=== PATIENT | male | born 1955 | race Caucasian/White ===

== ENCOUNTER → 2017-01-26 | Outpatient (CLI) | payer OTHER ==
[~2017-01-26] MED LIST: ALBU17IN INH; ASPI1TAB PO; ASPI325T PO; ASPI81TA45 PO; ATEN50TA2 PO; ATOR40TA PO; ATRO0.063 IN; CHLO125TA PO; COMBAER6 INH; DOCU100C PO; DOCU10CA PO; FLOM5CAP PO; FOLI1TAB2 PO; FURO20TA2 PO; ISOS10TAB PO; ISOS5TA PO; LISI-538 PO; LOPR1TAB6 PO; METF1000 PO; METO100T PO; METO25TAB PO; METO50TA2 PO; MULTCAP PO; NITR4TASL SL; PLAV75TA38 PO; PROT1TAB2 PO; SENO8.6T2 PO; TELM1TAB2 PO; TYLE325T5 PO; VITMTA PO
[2017-01-26 13:52] LABS: ANION GAP 9 MEQ/L (8-16); BLOOD UREA NITROGEN 15 MG/DL (7-18); CALCIUM LEVEL 9.1 MG/DL (8.8-10.2); CARBON DIOXIDE LEVEL 28 MEQ/L (21-32); CHLORIDE LEVEL 100 MEQ/L (98-107); CREATININE FOR GFR 1.15 MG/DL (0.70-1.30); GLOMERULAR FILTRATION RATE > 60.0 (>49); GLUCOSE, FASTING 138 MG/DL (80-110); POTASSIUM SERUM 4.4 MEQ/L (3.5-5.1); SODIUM LEVEL 137 MEQ/L (136-145)
== END ==
LOC: M SMT 09:46
PROVIDERS: ATTEND Nurse Practitioner Women's Health
DX: Z12.5 Encounter for screening for malignant neoplasm of prostate (principal); E27.9 Disorder of adrenal gland, unspecified

== ENCOUNTER → 2017-01-26 | Outpatient (REF) | payer OTHER | LOC: M SMT 17:06 | PROVIDERS: ATTEND Nurse Practitioner Women's Health | DX: R10.9 Unspecified abdominal pain (principal); E27.9 Disorder of adrenal gland, unspecified ==

== ENCOUNTER → 2017-01-27 | Outpatient (REF) | payer OTHER | LOC: M SFHCPLAZ 09:11 | PROVIDERS: ATTEND Family Medicine | DX: E11.9 Type 2 diabetes mellitus without complications (principal); I10 Essential (primary) hypertension ==

== ENCOUNTER → 2017-02-02 | Outpatient (CLI) | payer OTHER ==
[~2017-02-02] MED LIST changes: +ISOVUE-370 76% 100ML VIAL (Q9967) As Ordered ONE
== END ==
LOC: M RAD 15:42
PROVIDERS: ATTEND Nurse Practitioner Women's Health
DX: E27.9 Disorder of adrenal gland, unspecified (principal); N28.1 Cyst of kidney, acquired; K42.9 Umbilical hernia without obstruction or gangrene

== ENCOUNTER → 2017-08-30 | Outpatient (REF) | payer OTHER ==
[2017-08-30 16:00] LABS: ESTIMATED AVERAGE GLUCOSE 131 MG/DL (60-110); HEMOGLOBIN A1c 6.2 %
== END ==
LOC: M SFHCPLAZ 13:58
DX: E11.9 Type 2 diabetes mellitus without complications (principal)

== ENCOUNTER → 2018-09-23 | Outpatient (CLI) | payer OTHER ==
[~2018-09-23] MED LIST changes: -ATOR40TA PO; +ATOR40TA75 PO; -DOCU100C PO; +DOCU100C16 PO; +FLOM0.4C39 PO; -FLOM5CAP PO; +FOLI1TAB11 PO; -FOLI1TAB2 PO; -ISOVUE-370 76% 100ML VIAL (Q9967) As Ordered ONE; -METF1000 PO; +METF10004 PO; -METO100T PO; +METO100T5 PO; -METO50TA2 PO; +METO50TA7 PO; +PLAV1TAB2 PO; -PLAV75TA38 PO; -SENO8.6T2 PO; +SENO8.6T5 PO; -TELM1TAB2 PO; +TELM1TAB37 PO
--- NOTE | 2018-09-23 13:43 | REP ---
RENAL AND BLADDER ULTRASOUND: Real-time sonographic evaluation of the kidney is performed. Right kidney measures 12.1 x 6.5 x 6.2 cm and left kidney 13.4 x 6.4 x 7.0 cm. There is no hydronephrosis bilaterally. No definite renal stone is seen. There is a cyst in the upper left kidney 5.0 x 4.5 x 5.8 cm. This has increased in size compared to the prior study of 02/22/2015 when maximum diameter was 3.5 cm. It is similar in size compared to the CT scan of 02/02/2017. Prostate measures 3.8 x 3.6 x 3.2 cm for a volume of 22.9 mL. Urinary bladder is mildly distended with no gross abnormality. IMPRESSION: Left renal cyst. Electronically Signed by Bjorn Spencer MD 09/23/2018 01:45 P
== END ==
LOC: M RAD 12:28
PROVIDERS: ATTEND Family Medicine
DX: N28.1 Cyst of kidney, acquired (principal)

== ENCOUNTER → 2018-11-23 | Outpatient (REF) | payer OTHER ==
[~2018-11-23] MED LIST changes: +ASPI-1 PO; -ASPI1TAB PO; -ASPI325T PO; +ASPI81TA26 PO; +METO1TAB63 PO; -METO25TAB PO
[2018-11-23 13:08] LABS: C REACTIVE PROTEIN QUANTITATIV < 0.30 MG/DL (0.00-0.30); RHEUMATOID FACTOR QUANT < 10.0 IU/ML (<15.0)
[2018-11-23 13:28] LABS: APPEARANCE, URINE CLEAR (CLEAR); BACTERIA, URINE AUTO NEGATIVE (NEGATIVE); BILIRUBIN, URINE AUTO NEGATIVE (NEGATIVE); BLOOD, URINE BLOOD NEGATIVE (NEGATIVE); COLOR, URINE YELLOW (YELLOW); GLUCOSE, URINE (UA) AUTO NEGATIVE (NEGATIVE); KETONE, URINE AUTO TRACE mg/dL (NEGATIVE); LEUKOCYTE ESTERASE, URINE AUTO NEGATIVE (NEGATIVE); MUCUS, URINE SMALL (NEGATIVE); NITRITE, URINE AUTO NEGATIVE (NEGATIVE); PROTEIN, URINE AUTO NEGATIVE (NEGATIVE); RBC, URINE AUTO 0 /HPF (0-3); SPECIFIC GRAVITY URINE AUTO 1.024 (1.002-1.035); SQUAMOUS EPITHELIAL CELL UR AU 1 /HPF (0-6); WBC, URINE AUTO 1 /HPF (0-3)
== END ==
LOC: M SFHCPLAZ 08:51
PROVIDERS: ATTEND Family Medicine
DX: R39.89 Other symptoms and signs involving the genitourinary system (principal); Z87.39 Personal history of other diseases of the musculoskeletal system and connective tissue

== ENCOUNTER → 2018-12-28 | Outpatient (CLI) | payer OTHER ==
--- NOTE | 2018-12-28 08:48 | PFTRPT ---
Height: 72.00 Inches Weight: 270.00 Lbs BSA: 2.42 Diagnosis: J44.9 DATE OF STUDY: 12/28/2018 ORDERED BY: Dr. Claudio Pat Spirometry: Pre and post bronchodilator study of excellent technical quality. Forced vital capacity reduced. FEV1 in proportion. Obstructive index is, therefore, normal. Flow Volume Loop: Expiratory limb of the flow volume loop does suggest some degree of flow rate limitation in a nonspecific pattern. No significant bronchodilator response identified. Lung Volumes: Total lung capacity is normal. Diffusing Capacity: Diffusing capacity is reduced and does not correct for alveolar volume. Hemoglobin: No hemoglobin available for correction. Airway Mechanics: Airway resistance and conductance are normal. IMPRESSION: Nonspecific flow rate limitation with diffusing capacity impairment requires clinical correlation. MTDD
== END ==
LOC: M CARPUL 08:03
PROVIDERS: ATTEND Family Medicine
DX: J44.9 Chronic obstructive pulmonary disease, unspecified (principal)

== ENCOUNTER → 2019-03-21 | Outpatient (REF) | payer OTHER ==
[2019-03-21 17:36] LABS: HEMATOCRIT 39.8 % (42.0-52.0); HEMOGLOBIN 12.8 g/dl (13.5-17.5); MEAN CORPUSCULAR HEMOGLOBIN 29.2 pg (27.0-33.0); MEAN CORPUSCULAR HGB CONC 32.2 g/dl (32.0-36.5); MEAN CORPUSCULAR VOLUME 90.7 fl (80.0-96.0); PLATELET COUNT, AUTOMATED 245 10^3/uL (150-450); RED BLOOD COUNT 4.39 10^6/uL (4.30-6.10); WHITE BLOOD COUNT 7.7 10^3/uL (4.0-10.0)
[2019-03-21 17:45] LABS: ALBUMIN 4.1 GM/DL (3.2-5.2); BLOOD UREA NITROGEN 14 MG/DL (7-18); CALCIUM LEVEL 9.9 MG/DL (8.8-10.2); CARBON DIOXIDE LEVEL 27 MEQ/L (21-32); CHLORIDE LEVEL 106 MEQ/L (98-107); CREATININE FOR GFR 1.15 MG/DL (0.70-1.30); GLOMERULAR FILTRATION RATE > 60.0 (>49); GLUCOSE, FASTING 117 MG/DL (70-100); NT-PRO BNP 40 PG/ML (<125); PHOSPHORUS LEVEL 3.2 MG/DL (2.5-4.9); POTASSIUM SERUM 4.7 MEQ/L (3.5-5.1); SODIUM LEVEL 140 MEQ/L (136-145)
== END ==
LOC: M LABDRAWP 15:16
PROVIDERS: ATTEND Internal Medicine Cardiovascular Disease
DX: R06.02 Shortness of breath (principal); I10 Essential (primary) hypertension

== ENCOUNTER → 2019-12-18 | Outpatient (REF) | payer OTHER ==
[2019-12-18 18:10] LABS: BLOOD UREA NITROGEN 13 MG/DL (7-18); CALCIUM LEVEL 10.1 MG/DL (8.8-10.2); CARBON DIOXIDE LEVEL 29 MEQ/L (21-32); CHLORIDE LEVEL 105 MEQ/L (98-107); CREATININE FOR GFR 1.04 MG/DL (0.70-1.30); GLOMERULAR FILTRATION RATE > 60.0 (>49); GLUCOSE, FASTING 203 MG/DL (70-100); POTASSIUM SERUM 5.3 MEQ/L (3.5-5.1); PROSTATIC SPECIFIC AG MONITOR 1.69 NG/ML (< 4.00); SODIUM LEVEL 140 MEQ/L (136-145)
[2019-12-18 18:23] LABS: MALB URINE SIEMENS 80.9 MG/L; MAU/CREAT RATIO 34.8 MCG/MG (0.0-30.0)
== END ==
LOC: M SFHCPLAZ 15:02
PROVIDERS: ATTEND Family Medicine
DX: E11.9 Type 2 diabetes mellitus without complications (principal); Z12.5 Encounter for screening for malignant neoplasm of prostate

== ENCOUNTER → 2020-01-16 | Outpatient (CLI) | payer OTHER ==
--- NOTE | 2020-01-17 04:50 | REP ---
Clinical: Lung screening. History smoking. Comparison: 04/02/2016 Technique: Axial low-dose noncontrast images from the thoracic inlet to the upper abdomen using lung screening technique. Findings: The lung alvarado are well-aerated. No consolidation, significant nodule or mass lesion is appreciated. Incidental 2 mm nodule at the lingula (image 56). No pleural effusion/reaction or pneumothorax. Tracheobronchial tree is patent. Mediastinum demonstrates mild atherosclerotic changes of the coronary arteries without cardiomegaly. Impression: Lung-RADS category II. 2 mm nodule at the lingula. Management recommendations include annual low-dose CT evaluation. Electronically Signed by Doyle Krishnamurthy MD 01/17/2020 04:42 A
== END ==
LOC: M RAD 09:54
PROVIDERS: ATTEND Family Medicine
DX: Z12.2 Encounter for screening for malignant neoplasm of respiratory organs (principal); Z87.891 Personal history of nicotine dependence; R91.1 Solitary pulmonary nodule

== ENCOUNTER → 2020-12-30 | Outpatient (REF) | payer OTHER ==
[~2020-12-30] MED LIST changes: -LISI-538 PO; +LISI20TA33 PO
[2020-12-30 16:00] LABS: HEMOGLOBIN A1c 11.1 %
[2020-12-30 16:07] LABS: BLOOD UREA NITROGEN 15 MG/DL (7-18); CALCIUM LEVEL 8.8 MG/DL (8.8-10.2); CARBON DIOXIDE LEVEL 26 MEQ/L (21-32); CHLORIDE LEVEL 100 MEQ/L (98-107); CHOLESTEROL LEVEL 203 MG/DL (<200); CHOLESTEROL RISK RATIO 5.342 (<5); CREATININE FOR GFR 0.86 MG/DL (0.70-1.30); GLOMERULAR FILTRATION RATE > 60.0 (>49); GLUCOSE, FASTING 297 MG/DL (70-100); HDL CHOLESTEROL 38 MG/DL (>40); NON-HDL-C 165 MG/DL; POTASSIUM SERUM 4.4 MEQ/L (3.5-5.1); SODIUM LEVEL 134 MEQ/L (136-145); TRIGLYCERIDES LEVEL 681 MG/DL (<150)
[2020-12-30 16:20] LABS: CREATININE, URINE 69.4 MG/DL; MALB URINE SIEMENS 84.9 MG/L; MAU/CREAT RATIO 122.3 MCG/MG (0.0-30.0)
== END ==
LOC: M SFHCPLAZ 13:14
PROVIDERS: ATTEND Family Medicine
DX: I25.2 Old myocardial infarction (principal); E11.9 Type 2 diabetes mellitus without complications

== ENCOUNTER → 2021-01-20 | Outpatient (CLI) | payer OTHER ==
--- NOTE | 2021-01-20 10:42 | REP ---
INDICATION: ENCNTR SCREEN FOR MALIGNANT NEOPLASM OF RESPIRATORY ORGANS COMPARISON: 01/16/2020, 04/02/2016 TECHNIQUE: Axial noncontrast images from the thoracic inlet to the upper abdomen using low-dose lung screening technique (LDCT). FINDINGS: Bilateral lung alvarado are well aerated. Stable 2 mm density in the lingula is unchanged. A 3 mm noncalcified nodule is also identified within the right lower lobe (series 201; image 50) which in retrospect is stable through 2016. No acute consolidation, new suspicious nodule or mass lesion. No effusion. No pneumothorax. Tracheobronchial tree is patent. IMPRESSION: Lung-RADS category 2. Management recommendations include annual low-dose CT surveillance. <Electronically signed by Doyle Krishnamurthy > 01/20/21 [id number]
== END ==
LOC: M RAD 10:10
PROVIDERS: ATTEND Family Medicine
DX: R91.1 Solitary pulmonary nodule (principal)

== ENCOUNTER → 2022-06-24 | Outpatient (CLI) | payer OTHER ==
[~2022-06-24] MED LIST changes: +ATOR80TA59 PO; +CIAL5TAB PO; +CLOP75TA99 PO; +ICOS1CAP PO; +ISOS10TA3 PO; +ISOS20TA53 PO; +LEVO1TAB40 PO; +METF-838 PO; +METR-265 PO; -PLAV1TAB2 PO
[2022-06-24 16:23] LABS: ALBUMIN 3.8 GM/DL (3.2-5.2); ALT/SGPT 35 U/L (12-78); BILIRUBIN,TOTAL 0.9 MG/DL (0.2-1.0); BLOOD UREA NITROGEN 18 MG/DL (7-18); CALCIUM LEVEL 9.7 MG/DL (8.8-10.2); CARBON DIOXIDE LEVEL 30 MEQ/L (21-32); CHLORIDE LEVEL 95 MEQ/L (98-107); GLOMERULAR FILTRATION RATE > 60.0 (>49); GLUCOSE, FASTING 418 MG/DL (70-100); POTASSIUM SERUM 4.6 MEQ/L (3.5-5.1); SODIUM LEVEL 133 MEQ/L (136-145); TOTAL PROTEIN 7.6 GM/DL (6.4-8.2)
[2022-06-24 18:36] LABS: CREATININE, URINE 62.6 MG/DL; MAU/CREAT RATIO 127.7 MCG/MG (0.0-30.0)
[2022-06-24 21:44] LABS: HEMOGLOBIN A1c 12.9 %
[2022-06-26 23:07] LABS: PSA TOTAL 2.5 ng/mL (0.0-4.0)
== END ==
LOC: M PLALAB 13:04
PROVIDERS: ATTEND Student in an Organized Health Care Education/Training Program
DX: E11.9 Type 2 diabetes mellitus without complications (principal); Z12.5 Encounter for screening for malignant neoplasm of prostate

== ENCOUNTER → 2023-01-28 | Outpatient (CLI) | payer OTHER ==
[2023-01-28 17:02] LABS: HEMOGLOBIN A1c 10.1 % (4.0-6.0)
== END ==
LOC: M PLALAB 12:52
PROVIDERS: ATTEND Student in an Organized Health Care Education/Training Program
DX: I25.118 Atherosclerotic heart disease of native coronary artery with other forms of angina pectoris (principal); Z79.899 Other long term (current) drug therapy

== ENCOUNTER → 2023-02-05 | Outpatient (CLI) | payer OTHER ==
[2023-02-05 15:58] LABS: BASO # 0.1 10^3/uL (0.0-0.2); BASO % 0.8 % (0.0-1.0); EOS # 0.2 10^3/uL (0.0-0.5); EOS % 2.8 % (0.0-3.0); HEMATOCRIT 41.3 % (42.0-52.0); HEMOGLOBIN 13.8 g/dl (13.5-17.5); LYMPH # 2.8 10^3/uL (1.5-5.0); LYMPH % 47.2 % (24.0-44.0); MEAN CORPUSCULAR HEMOGLOBIN 29.9 pg (27.0-33.0); MEAN CORPUSCULAR HGB CONC 33.4 g/dl (32.0-36.5); MEAN CORPUSCULAR VOLUME 89.4 fl (80.0-96.0); MONO # 0.6 10^3/uL (0.0-0.8); MONO % 10.5 % (2.0-8.0); NEUTROPHILS # 2.3 10^3/uL (1.5-8.5); NEUTROPHILS % 38.2 % (36.0-66.0); PLATELET COUNT, AUTOMATED 215 10^3/uL (150-450); RED BLOOD COUNT 4.62 10^6/uL (4.30-6.10)
[2023-02-05 16:20] LABS: ALBUMIN 3.8 G/DL (3.2-5.2); ALKALINE PHOSPHATASE 77 U/L (46-116); ALT/SGPT 44 U/L (7.0-40); AST/SGOT 37 U/L (<34); BILIRUBIN,TOTAL 0.6 MG/DL (0.3-1.2); BLOOD UREA NITROGEN 17 MG/DL (9-23); CALCIUM LEVEL 8.9 MG/DL (8.3-10.6); CARBON DIOXIDE LEVEL 29 MMOL/L (20-31); CHLORIDE LEVEL 103 MMOL/L (98-107); CHOLESTEROL LEVEL 161 MG/DL (<200); CHOLESTEROL RISK RATIO 4.38 (<5); CREATININE FOR GFR 1.15 MG/DL (0.70-1.30); GLOMERULAR FILTRATION RATE > 60.0 (>49); GLUCOSE, FASTING 173 MG/DL (74-106); HDL CHOLESTEROL 36.7 MG/DL (>40); LDL CHOLESTEROL 56.5 MG/DL (<100); NON-HDL-C 124.3 MG/DL; POTASSIUM SERUM 4.7 MMOL/L (3.5-5.1); SODIUM LEVEL 140 MMOL/L (136-145); TOTAL PROTEIN 6.4 G/DL (5.7-8.2); TRIGLYCERIDES LEVEL 339 MG/DL (<150)
[2023-02-05 16:38] LABS: CREATININE, URINE 105.5 MG/DL; MAU/CREAT RATIO 68.2 MCG/MG (0.0-30.0)
== END ==
LOC: M PLALAB 12:32
PROVIDERS: ATTEND Student in an Organized Health Care Education/Training Program
DX: Z86.73 Personal history of transient ischemic attack (TIA), and cerebral infarction without residual deficits (principal); E11.65 Type 2 diabetes mellitus with hyperglycemia

== ENCOUNTER → 2023-06-17 | Outpatient (CLI) | payer OTHER ==
[2023-06-17 16:23] LABS: HEMOGLOBIN A1c 6.5 % (4.0-6.0)
== END ==
LOC: M PLALAB 13:59
PROVIDERS: ATTEND Student in an Organized Health Care Education/Training Program
DX: E11.65 Type 2 diabetes mellitus with hyperglycemia (principal)

== ENCOUNTER → 2023-06-17 | Outpatient (REF) | payer OTHER | LOC: M SFHCPLAZ 18:18 | PROVIDERS: ATTEND Internal Medicine Hematology | DX: E11.65 Type 2 diabetes mellitus with hyperglycemia (principal) ==

== ENCOUNTER → 2023-10-13 | Outpatient (CLI) | payer OTHER ==
[2023-10-13 14:51] LABS: HEMOGLOBIN A1c 13.1 % (4.0-6.0)
[2023-10-13 15:00] LABS: THYROID STIMULATING HORMONE 4.218 uIU/ML (0.55-4.78); TOTAL 25(OH) VITAMIN D 8.3 NG/ML (20.0-100.0)
[2023-10-13 15:03] LABS: VITAMIN B12 LEVEL 435 PG/ML (211-911)
[2023-10-13 15:19] LABS: ALBUMIN 3.7 G/DL (3.2-5.2); ALKALINE PHOSPHATASE 105 U/L (46-116); ALT/SGPT 55 U/L (7.0-40); AST/SGOT 24 U/L (<34); BILIRUBIN,TOTAL 0.5 MG/DL (0.3-1.2); BLOOD UREA NITROGEN 18 MG/DL (9-23); CALCIUM LEVEL 9.8 MG/DL (8.3-10.6); CARBON DIOXIDE LEVEL 26 MMOL/L (20-31); CHLORIDE LEVEL 95 MMOL/L (98-107); CHOLESTEROL LEVEL 367 MG/DL (<200); CHOLESTEROL RISK RATIO 8.92 (<5); CREATININE FOR GFR 0.83 MG/DL (0.70-1.30); GLOMERULAR FILTRATION RATE > 60.0 (>49); GLUCOSE, FASTING 397 MG/DL (74-106); HDL CHOLESTEROL 41.1 MG/DL (>40); NON-HDL-C 325.9 MG/DL; POTASSIUM SERUM 4.1 MMOL/L (3.5-5.1); SODIUM LEVEL 132 MMOL/L (136-145); TOTAL PROTEIN 6.9 G/DL (5.7-8.2); TRIGLYCERIDES LEVEL 1814 MG/DL (<150)
== END ==
LOC: M PLALAB 10:36
PROVIDERS: ATTEND Student in an Organized Health Care Education/Training Program
DX: E11.65 Type 2 diabetes mellitus with hyperglycemia (principal); Z79.899 Other long term (current) drug therapy

== ENCOUNTER → 2023-12-14 | Outpatient (REF) | payer OTHER ==
[2023-12-14 18:30] LABS: HEMOGLOBIN A1c 9.8 % (4.0-6.0)
[2023-12-14 18:34] LABS: URIC ACID 6.1 MG/DL (3.7-9.2)
[2023-12-14 18:38] LABS: BLOOD UREA NITROGEN 16 MG/DL (9-23); CALCIUM LEVEL 9.8 MG/DL (8.3-10.6); CARBON DIOXIDE LEVEL 31 MMOL/L (20-31); CHLORIDE LEVEL 100 MMOL/L (98-107); CHOLESTEROL LEVEL 197 MG/DL (<200); CREATININE FOR GFR 0.93 MG/DL (0.70-1.30); GLOMERULAR FILTRATION RATE > 60.0 (>49); GLUCOSE, FASTING 169 MG/DL (74-106); HDL CHOLESTEROL 41.9 MG/DL (>40); NON-HDL-C 155.1 MG/DL; POTASSIUM SERUM 4.6 MMOL/L (3.5-5.1); SODIUM LEVEL 138 MMOL/L (136-145); TRIGLYCERIDES LEVEL 598 MG/DL (<150)
== END ==
LOC: M LABDRAWP 17:48
PROVIDERS: ATTEND Student in an Organized Health Care Education/Training Program
DX: M1A.0720 Idiopathic chronic gout, left ankle and foot, without tophus (tophi) (principal); E78.2 Mixed hyperlipidemia; E11.65 Type 2 diabetes mellitus with hyperglycemia

== ENCOUNTER → 2024-05-01 | Outpatient (CLI) | payer OTHER ==
[2024-05-01 10:23] LABS: THYROID STIMULATING HORMONE 2.829 uIU/ML (0.55-4.78)
[2024-05-01 10:25] LABS: HEMOGLOBIN A1c 8.5 % (4.0-6.0)
[2024-05-01 10:27] LABS: CHOLESTEROL LEVEL 161 MG/DL (<200); HDL CHOLESTEROL 32.8 MG/DL (>40); NON-HDL-C 128.2 MG/DL; TRIGLYCERIDES LEVEL 510 MG/DL (<150); URIC ACID 4.4 MG/DL (3.7-9.2)
== END ==
LOC: M RAD 08:19
PROVIDERS: ATTEND Student in an Organized Health Care Education/Training Program
DX: E11.65 Type 2 diabetes mellitus with hyperglycemia (principal); M25.562 Pain in left knee; M1A.0720 Idiopathic chronic gout, left ankle and foot, without tophus (tophi)

== ENCOUNTER → 2024-10-25 | Outpatient (CLI) | payer OTHER ==
[~2024-10-25] MED LIST changes: -ISOS20TA53 PO; +ISOS20TA72 PO
[2024-10-25 15:46] LABS: BASO # 0.1 10^3/uL (0.0-0.2); BASO % 0.9 % (0.0-1.0); EOS # 0.4 10^3/uL (0.0-0.5); EOS % 4.4 % (0.0-3.0); HEMATOCRIT 40.5 % (42.0-52.0); HEMOGLOBIN 13.3 g/dl (13.5-17.5); LYMPH # 2.9 10^3/uL (1.5-5.0); LYMPH % 36.8 % (24.0-44.0); MEAN CORPUSCULAR HEMOGLOBIN 29.6 pg (27.0-33.0); MEAN CORPUSCULAR HGB CONC 32.8 g/dl (32.0-36.5); MONO # 0.8 10^3/uL (0.0-0.8); MONO % 10.4 % (2.0-8.0); NEUTROPHILS # 3.7 10^3/uL (1.5-8.5); NEUTROPHILS % 47.1 % (36.0-66.0); PLATELET COUNT, AUTOMATED 225 10^3/uL (150-450); WHITE BLOOD COUNT 7.9 10^3/uL (4.0-10.0)
[2024-10-25 15:54] LABS: ALBUMIN 3.7 G/DL (3.2-5.2); ALKALINE PHOSPHATASE 90 U/L (40-129); ALT/SGPT 45 U/L (7.0-40); AST/SGOT 34 U/L (<34); BILIRUBIN,TOTAL 0.6 MG/DL (0.3-1.2); BLOOD UREA NITROGEN 13 MG/DL (9-23); CALCIUM LEVEL 9.2 MG/DL (8.3-10.6); CARBON DIOXIDE LEVEL 30 MMOL/L (20-31); CHLORIDE LEVEL 106 MMOL/L (98-107); CHOLESTEROL LEVEL 87 MG/DL (<200); CHOLESTEROL RISK RATIO 2.63 (<5); CREATININE FOR GFR 0.81 MG/DL (0.70-1.30); GLOMERULAR FILTRATION RATE > 60.0 (>49); GLUCOSE, FASTING 105 MG/DL (74-106); LDL CHOLESTEROL 24.4 MG/DL (<100); MAGNESIUM LEVEL 1.9 MG/DL (1.8-2.4); POTASSIUM SERUM 4.9 MMOL/L (3.5-5.1); SODIUM LEVEL 143 MMOL/L (136-145); TOTAL PROTEIN 6.9 G/DL (5.7-8.2); TRIGLYCERIDES LEVEL 148 MG/DL (<150)
[2024-10-25 15:56] LABS: FREE T4 1.07 NG/DL (0.89-1.76); THYROID STIMULATING HORMONE 1.477 uIU/ML (0.55-4.78)
== END ==
LOC: M PLALAB 12:39
PROVIDERS: ATTEND Physician Assistant
DX: I25.119 Atherosclerotic heart disease of native coronary artery with unspecified angina pectoris (principal); E78.2 Mixed hyperlipidemia; R00.2 Palpitations; R06.02 Shortness of breath

== ENCOUNTER → 2025-06-08 | Outpatient (CLI) | payer OTHER, MEDICAID ==
[~2025-06-08] MED LIST changes: -FLOM0.4C39 PO; +SENN-225 PO; -SENO8.6T5 PO; +TAMS-18 PO
[2025-06-08 17:37] LABS: BASO # 0.1 10^3/uL (0.0-0.2); BASO % 0.9 % (0.0-1.0); EOS # 0.3 10^3/uL (0.0-0.5); EOS % 3.3 % (0.0-3.0); LYMPH # 4.1 10^3/uL (1.5-5.0); LYMPH % 44.1 % (24.0-44.0); MONO # 1.0 10^3/uL (0.0-0.8); MONO % 11.2 % (2.0-8.0); NEUTROPHILS # 3.7 10^3/uL (1.5-8.5); NEUTROPHILS % 40.2 % (36.0-66.0); PLATELET COUNT, AUTOMATED 238 10^3/uL (150-450)
[2025-06-08 17:39] LABS: ALT/SGPT 44.0 U/L (7.0-40); AST/SGOT 31.0 U/L (<34); CALCIUM LEVEL 10.0 MG/DL (8.3-10.6); CARBON DIOXIDE LEVEL 28.0 MMOL/L (20-31); CHLORIDE LEVEL 103.0 MMOL/L (98-107); CHOLESTEROL LEVEL 121.0 MG/DL (<200); CHOLESTEROL RISK RATIO 3.26 (<5); CREATININE FOR GFR 1.04 MG/DL (0.70-1.30); GLOMERULAR FILTRATION RATE 78.2 (>49); LDL CHOLESTEROL 47.9 MG/DL (<100); NON-HDL-C 83.9 MG/DL; POTASSIUM SERUM 4.3 MMOL/L (3.5-5.1); PSA SCREENING 3.23 NG/ML (< 4.00); SODIUM LEVEL 141.0 MMOL/L (136-145); TRIGLYCERIDES LEVEL 180.0 MG/DL (<150)
[2025-06-08 18:35] LABS: ESTIMATED AVERAGE GLUCOSE 154.0 MG/DL (60-110)
== END ==
LOC: M PLALAB 14:51
PROVIDERS: ATTEND Student in an Organized Health Care Education/Training Program
DX: Z00.00 Encounter for general adult medical examination without abnormal findings (principal); E11.65 Type 2 diabetes mellitus with hyperglycemia; E78.2 Mixed hyperlipidemia; Z12.5 Encounter for screening for malignant neoplasm of prostate
CPT/HCPCS: 36415; 80053; 80061; 83036; 85025; G0103